=== PATIENT | male | born 1960 | race Asian ===

== ENCOUNTER 2017-04-30 12:00 | Emergency (ER) | payer OTHER ==
[~2017-04-30] VITALS: Ht 170.2 cm; Wt 90.9 kg
[2017-04-30] MEDS ORDERED: OxyCODONE HCL/ACETAMINOPHEN 5-325 MG TABLET PO ONE (13:15)
[2017-04-30 14:49] VITALS: BP 150/90
== END 2017-04-30 14:52 | disposition home or self-care (01) ==
LOC: EMS 12:01
DX: M79.605 Pain in left leg (principal); M54.9 Dorsalgia, unspecified
CPT/HCPCS: 72100; 99284

== ENCOUNTER 2018-05-14 17:25 | Emergency (ER) | payer OTHER ==
[~2018-05-14] VITALS: Ht 177.8 cm; Wt 90.9 kg
[2018-05-14] MEDS ORDERED: IBUPROFEN 800 MG TABLET PO ONE (18:30)
[2018-05-14 20:04] VITALS: BP 159/98
== END 2018-05-14 20:06 | disposition home or self-care (01) ==
LOC: EMS 17:26
DX: M25.571 Pain in right ankle and joints of right foot (principal); R03.0 Elevated blood-pressure reading, without diagnosis of hypertension